=== PATIENT | female | born 1945 | race Hispanic/Latino ===

== ENCOUNTER 2022-01-18 | Emergency (ER) | payer MEDICARE ==
[2022-01-18] MEDS ORDERED: Sulfameth/Trimethoprim DS 800-160mg TAB ONE (13:10)
[2022-01-18] MEDS ORDERED: Boostrix 0.5 ML (Tdap) VIAL ONE (13:10)
[2022-01-18] MEDS ORDERED: Amoxicillin/Potassium Clav 875 MG TAB ONE (13:16)
== END 2022-01-18 13:35 | disposition home or self-care (01) ==
CPT/HCPCS: 90471; 90715; 99283

== ENCOUNTER 2022-10-15 16:33 | Emergency (ER) | payer MEDICARE ==
[~2022-10-15 16:33] MED LIST: Iopamidol 370 76% 100 ML VIAL ONE
[2022-10-15] MEDS ORDERED: Ondansetron ODT 4 MG TAB ONE (17:22)
[2022-10-15] MEDS ORDERED: Sodium Chloride 0.9% 1,000 ML ONE (17:22)
[2022-10-15] MEDS ORDERED: Ondansetron PF 4 MG/2 ML Vial ONE (17:22)
[2022-10-15 17:33] LABS: Bilirubin Negative (Negative); Blood, Urine Trace (Negative); Clarity Clear (Clear); Glucose, Urine (Dipstick) 100 mg/dL (Negative); Ketone, Urine Negative (Negative); Leukocyte Negative (Negative); Nitrite Negative (Negative); Protein, Urine (Dipstick) Negative (Neg-Trace); Urobilinogen 0.2 mg/dL (Less than 2)
[2022-10-15 17:37] LABS: #Lymphocytes 1.1 thou/uL (1.20-3.40); #Monocytes 0.4 thou/uL (0.11-0.59); #Neutrophils 4.5 thou/uL (1.40-6.50); %Basophils 0.8 % (0.0-1.0); %Eosinophils 0.3 % (0.0-10.0); %Lymphocytes 18.3 % (21.0-51.0); %Monocytes 6.8 % (0.0-10.0); %Neutrophils 73.8 % (42.0-75.0); Hemoglobin 12.5 g/dL (12.0-16.0); Mean Corpuscular HGB CONC 33.4 g/dL (32.0-36.0); Mean Corpuscular Hemoglobin 31.4 pg (27.0-31.0); Platelet Count 299 10x3/uL (130-400); RBC Distribution Width 12.3 % (11.5-14.5); Red Blood Cell (RBC) Count 3.97 mill/uL (4.20-5.40)
[2022-10-15 17:44] LABS: RBC/HPF 0-3 HPF (0-3); Squamous Epithelial 0-3 HPF (0-3); Transitional Epithelial 0-3 HPF (None Seen)
[2022-10-15 17:46] LABS: ALT (SGPT) 26 U/L (8-55); AST (SGOT) 19 U/L (5-34); Albumin 4.6 g/dL (3.4-4.8); Alkaline Phosphatase 117 U/L (40-110); Anion Gap 16 mmol/L (10-20); BUN (Urea Nitrogen) 17 mg/dL (9.8-20.1); Bilirubin, Total 0.9 mg/dL (0.2-1.2); Calc. Creatinine Clearance 0 mL/min (70-130); Calcium 9.7 mg/dL (7.8-10.44); Carbon Dioxide 24 mmol/L (23-31); Chloride 105 mmol/L (98-107); Estimated GFR 70; Globulin 2.9 g/dL (2.4-3.5); Glucose 100 mg/dL (83-110); Lipase 5 U/L (8-78); Potassium 3.4 mmol/L (3.5-5.1); Protein, Total 7.5 g/dL (5.8-8.1); Sodium 142 mmol/L (136-145)
[2022-10-15] MEDS ORDERED: Famotidine/PF 20 mg/2ml Vial ONE (19:08)
== END 2022-10-15 19:35 | disposition home or self-care (01) ==
LOC: NAV ERS 16:33
DX: R10.10 Upper abdominal pain, unspecified (principal); I10 Essential (primary) hypertension; E11.9 Type 2 diabetes mellitus without complications; E78.00 Pure hypercholesterolemia, unspecified; Z79.84 Long term (current) use of oral hypoglycemic drugs; Z79.82 Long term (current) use of aspirin
CPT/HCPCS: 51701; 71045; 74177; 80053; 81003; 81015; 83605; 83690; 83880; 84484; 85025; 93005; 94760; 96374; 96375; J2405; J7050; Q0162; Q9967; S0028